=== PATIENT | male | born 1940 | race Hispanic/Latino ===

== ENCOUNTER 2018-03-27 08:16 | Emergency (ER) | payer MEDICARE ==
[2018-03-27] MEDS ORDERED: SODIUM BICARBONATE IV ONE (08:20)
[2018-03-27] MEDS ORDERED: ADRENALIN ONE (08:20)
--- NOTE | 2018-03-27 08:33 | Emergency Department Report ---
ED CPR HPI - General Stated Complaint: CARDIAC ARREST Time Seen by Provider: 03/27/18 08:26 Source: EMS - History of Present Illness Initial Comments: Patient is a 77-year-old male brought into the ER in full cardiac arrest with CPR in progress. EMS stated that patient was found face down. Last time was seen normal last 20 minutes before that. EMS immediately and initiated ACLS protocol, initial rhythm is PEA according to EMS. Patient immediately intubated by EMS. Upon arrival to the ER patient is in asystole, intubation is confirmed by good breath out of both sides and carpnometry. ACLS protocol Continued in the ER but unfortunately patient remained in asystole. Patient pronounced at 8:20 AM. For further information please refer to code sheet. Patient friends and his caregiver at that side attending the resuscitation. No family available at this moment. Complaint: stopped breathing Onset/Timin -: minute(s) Place: home Bystander CPR Performed: No AED Applied by Bystander/Veneer Repairer Machine: No Shock Advised: No Downtime Before ACLS Arrival (mins): 20 Initial Findings in the Field: unresponsive, no pulse, PEA ROSC in the Field: No Associated Injuries: No Treatments Prior to Arrival: intubation, epinephrine mgs # (3) ED Review of Systems ROS: Stated complaint: CARDIAC ARREST Other details as noted in HPI Comment: Unobtainable due to pts medical conditions ED Physical Exam - General General appearance: other (intubated, CPR in progress) - Head Head exam: Present: other (nasal contusion.) - Eye Eye exam: Present: other Pupils: Present: other (pupils are 4 mm, fixed and dilated) - ENT ENT exam: Present: other (contusion to the nose.) - Neck Neck exam: Present: normal inspection - Respiratory Respiratory exam: Present: other (intubated, no spontaneous breathing) - Cardiovascular Cardiovascular Exam: Present: other (CPR in progress, no heart tones.) - GI/Abdominal GI/Abdominal exam: Present: soft. Absent: distended - Neurological Exam Neurological exam: Present: other (intubated) - Skin Skin exam: Present: warm Critical Care Time: Yes Critical care time in (mins) excluding proc time.: 30 Critical care attestation.: If time is entered above; I have spent that time in minutes in the direct care of this critically ill patient, excluding procedure time. ED Disposition Clinical Impression: Cardiopulmonary arrest Disposition: DC-20 Is pt being admited?: No Condition: Stable
== END 2018-03-27 09:00 ==
LOC: ED 08:16
DX: I46.9 Cardiac arrest, cause unspecified (principal)
CPT/HCPCS: 92950; 99291; J0171